=== PATIENT | female | born 1930 | race Caucasian/White ===

== ENCOUNTER 2017-11-15 07:39 | Emergency (ER) | payer MEDICARE ==
[~2017-11-15] VITALS: Ht 152.4 cm; Wt 77.6 kg
[~2017-11-15 07:39] MED LIST: ADVAIR; ALBUTEROL; ALENDRONATE SODIUM; ALEVE PO; ALIGN PO; ASPIRIN; ASPIRIN81 M2 PO; AZATHIOPRINE50 MG PO; BUSPIRONE HCL5 MG PO; CARVEDILOL; CIPROFLOXACIN; DUONEB3 ML HHN; FUROSEMIDE; GABAPENTIN; IMURAN; LEVOTHYROXINE; LOMOTIL1 EA PO; MELOXICAM; METRONIDAZOLE; METRONIDAZOLE500 MG PO; OMEPRAZOLE PO; PREDNISONE; PREDNISONE20 MG PO; PRESERVISION T1 EACH PO; PREVACID30 M2 PO; ROPINIROLE; SERTRALINE HCL50 MG PO; SPIRONOLACTONE; SYMBICORT 16010.2 GM PO; THEOPHYLLINE; THEOPHYLLINE A300 M1 PO; TRIAMCINOLONE; VESICARE; VITAMIN C; WAL ZAN; WOMEN'S VITAMIN PO; Z ALBUTEROL SULFAT PO; Z ROPINIROLE HCL PO; Z.0.ALBUTEROL SULF8. IH; Z.0.ALENDRONATE SOD7 PO; Z.0.CARVEDILOL12.5 M PO; Z.0.FUROSEMIDE40 MG PO; Z.0.GABAPENTIN100 MG PO; Z.0.LEVOTHYROXINE50 PO; Z.0.PREDNISONE10 MG PO; Z.0.SPIRONOLACTONE50 PO; Z.0.VESICARE5 MG PO; ZENPEP; ZENPEP DR 10,01 EACH PO; [UNRECOGNIZED DRUG - OTHER]; [UNRECOGNIZED DRUG - OTHER] PO; [UNRECOGNIZED DRUG - OTHER] PO
[2017-11-15] MEDS ORDERED: HYDROCODONE/APAP 5MG-325MG TAB PO ONE ×2 (08:15→11:45)
--- NOTE | 2017-11-15 10:59 | Diagnostic Imaging Report ---
PROCEDURE:X-RAY LEFT HAND, THREE OR MORE VIEWS, left wrist, 3 views COMPARISON:None. INDICATIONS:FALL FINDINGS: The bones are markedly osteopenic. No acute, displaced fracture or dislocation. Appropriate alignment between the distal radius, lunate, and capitate, is maintained on the lateral wrist radiograph. 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 Scattered degenerative changes of the carpus and hand. Soft tissues are unremarkable. CONCLUSION: Diffuse osteopenia without acute osseous abnormality of the left wrist or hand. Dictated by: Franko Moeller M.D. on 11/15/2017 at 11:08 Electronically approved by: Franko Moeller M.D. on 11/15/2017 at 11:08
--- NOTE | 2017-11-15 11:00 | Diagnostic Imaging Report ---
PROCEDURE:X-RAY LEFT WRIST, COMPLETE COMPARISON:None. INDICATIONS:FALL FINDINGS: Refer to conclusion CONCLUSION: For full detailed report refer to left hand radiographs also from 11/15/2017. Dictated by: Franko Moeller M.D. on 11/15/2017 at 11:09 Electronically approved by: Franko Moeller M.D. on 11/15/2017 at 11:09
--- NOTE | 2017-11-15 11:02 | Diagnostic Imaging Report ---
PROCEDURE:X-RAY LEFT FOREARM, TWO VIEWS, left elbow, 2 views COMPARISON:None. INDICATIONS:FALL FINDINGS: Diffuse osteopenia. No acute, displaced fracture or dislocation of the radius or ulna. Lateral radiograph of the elbow is suboptimal. Moderate joint space narrowing and subchondral sclerosis of the elbow joint. Soft tissues are unremarkable. CONCLUSION: Diffuse osteopenia without acute osseous abnormality of the left forearm or elbow. Dictated by: Franko Moeller M.D. on 11/15/2017 at 11:11 Electronically approved by: Franko Moeller M.D. on 11/15/2017 at 11:11
--- NOTE | 2017-11-15 11:03 | Diagnostic Imaging Report ---
PROCEDURE:X-RAY LEFT ELBOW, COMPLETE COMPARISON:None. INDICATIONS:FALL FINDINGS: Refer to conclusion CONCLUSION: For full report, refer to the left forearm radiographs also from 11/15/2017. Dictated by: Franko Moeller M.D. on 11/15/2017 at 11:12 Electronically approved by: Franko Moeller M.D. on 11/15/2017 at 11:12
--- NOTE | 2017-11-15 11:05 | Diagnostic Imaging Report ---
PROCEDURE:X-RAY LEFT HUMERUS, TWO OR MORE VIEWS, left shoulder 2 views COMPARISON:None. INDICATIONS:FALL FINDINGS: Acute transverse fracture of the surgical neck of the humerus with overriding by approximately 1.4 cm. The humeral head projects appropriately adjacent to the glenoid. The bones are diffusely osteopenic. Soft tissue swelling about the shoulder. CONCLUSION: Acute transverse fracture of the surgical neck of the left humerus with fragment overriding as above. Dictated by: Franko Moeller M.D. on 11/15/2017 at 11:14 Electronically approved by: Franko Moeller M.D. on 11/15/2017 at 11:14
--- NOTE | 2017-11-15 11:07 | Diagnostic Imaging Report ---
PROCEDURE:X-RAY LEFT SHOULDER, COMPLETE COMPARISON:None. INDICATIONS:FALL FINDINGS: See conclusion CONCLUSION: For full dictated report refer to left humerus radiographs also from 11/15/2017. Dictated by: Franko Moeller M.D. on 11/15/2017 at 11:15 Electronically approved by: Franko Moeller M.D. on 11/15/2017 at 11:15
--- NOTE | 2017-11-15 11:08 | Diagnostic Imaging Report ---
PROCEDURE:HIPS BILAT 3-4VWS (+/- PELVIS) INDICATION: Fall COMPARISON:None. FINDINGS: No acute, displaced fracture or dislocation. The femoral heads project appropriately over the acetabula. 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 Mild degenerative changes of the sacroiliac joints. Soft tissues are unremarkable. CONCLUSION: No displaced hip fracture. Dictated by: Franko Moeller M.D. on 11/15/2017 at 11:17 Electronically approved by: Franko Moeller M.D. on 11/15/2017 at 11:17
--- OUTSIDE RECORDS SUMMARY | 2017-11-23 11:53 | XMS REPORT ---
Author Author [facility] Address Unknown Phone Unavailable Care Team Providers Care Interior Design Principal Name Role Phone Yonny SILVER Unavailable Unavailable Problems This patient has no known problems. Allergies, Adverse Reactions, Alerts This patient has no known allergies or adverse reactions. Medications This patient has no known medications. Results Test Description Test Time Test Comments Text Results Atomic Results Result Comments HIPS BILAT 3-4VWS (+/- PELVIS) 2017-11-15 11:17:00 [place] [address] Patient Name: VIPIN OSCAR MR #: [id number] : 1930 Age/Sex: 87/F Req #: [id number] Adm Physician: Ordered by: MAO CANNON MICROCOMPUTER SUPPORT SPECIALIST Report #: [id number] Location: ER Room/Bed: Procedure: [id number] DX/HIPS BILAT 3-4VWS (+/- PELVIS) Exam Date: Exam Time: REPORT STATUS: Signed PROCEDURE: HIPS BILAT 3-4VWS (+/- PELVIS) INDICATION: Fall COMPARISON: None. FINDINGS: No acute, displaced fracture or dislocation. The femoral heads project appropriately over the acetabula. 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 Mild degenerative changes of the sacroiliac joints. Soft tissues are unremarkable. CONCLUSION: No displaced hip fracture. Dictated by: Windy Landeros M.D. on 11/15/2017 at 11:17 Electronically approved by: Windy Landeros M.D. on 11/15/2017 at 11:17 Dictated By: WINDY LANDEROS MD 16 Transcribed By: ANDREA on 11/15/171116 COPY TO: MAO CANNON NP SHOULDER LEFT COMPLETE 2017-11-15 11:15:00 [place] [address] Patient Name: VIPIN OSCAR MR #: [id number] : 1930 Age/Sex: 87/F Req #: [id number] Adm Physician: Ordered by: MAO CANNON NP Report #: [id number] Location: ER Room/Bed: Procedure: [id number] DX/SHOULDER LEFT COMPLETE Exam Date: 11/15/17 Exam Time: 1015 REPORT STATUS: Signed PROCEDURE: X-RAY LEFT SHOULDER, COMPLETE COMPARISON: None. INDICATIONS: FALL FINDINGS: See conclusion CONCLUSION: For full dictated report refer to left humerus radiographs also from 11/15/2017. Dictated by: Windy Landeros M.D. on 11/15/2017 at 11:15 Electronically approved by: Windy Landeros M.D. on 11/15/2017 at 11:15 Dictated By: WINDY LADNEROS MD 14 Transcribed By: ANDREA on 11/15/171114 COPY TO: MAO CANNON NP HUMERUS LEFT 2+VIEWS 2017-11-15 11:14:00 [place] [address] Patient Name: VIPIN OSCAR MR #: [id number] : 1930 Age/Sex: 87/F Req #: [id number] Adm Physician: Ordered by: MAO CANNON MICROCOMPUTER SUPPORT SPECIALIST Report #: [id number] Location: ER Room/Bed: Procedure: [id number] DX/HUMERUS LEFT 2+VIEWS Exam Date: 11/15/17 Exam Time: 1015 REPORT STATUS: Signed PROCEDURE: X-RAY LEFT HUMERUS, TWO OR MORE VIEWS, left shoulder 2 views COMPARISON: None. INDICATIONS: FALL FINDINGS: Acute transverse fracture of the surgical neck of the humerus with overriding by approximately 1.4 cm. The humeral head projects appropriately adjacent to the glenoid. The bones are diffusely osteopenic. Soft tissue swelling about the shoulder. CONCLUSION: Acute transverse fracture of the surgical neck of the left humerus with fragment overriding as above. Dictated by: Windy Landeros M.D. on 11/15/2017 at 11:14 Electronically approved by: Windy Landeros M.D. on 11/15/2017 at 11:14 Dictated By: WINDY LANDEROS MD 1114 Transcribed By: ANDREA on 11/15/17 1114 COPY TO: MAO CANNON NP ELBOW LEFT COMPLETE 2017-11-15 11:12:00 [place] [address] Patient Name: VIPIN OSCAR MR #: [id number] : 1930 Age/Sex: 87/F Req #: [id number] Adm Physician: Ordered by: MAO CANNON MICROCOMPUTER SUPPORT SPECIALIST Report #: [id number] Location: ER Room/Bed: Procedure: [id number] DX/ELBOW LEFT COMPLETE Exam Date: 11/15/17 Exam Time: 1015 REPORT STATUS: Signed PROCEDURE: X-RAY LEFT ELBOW, COMPLETE COMPARISON: None. INDICATIONS: FALL FINDINGS: Refer to conclusion CONCLUSION: For full report, refer to the left forearm radiographs also from 11/15/2017. Dictated by: Windy Landeros M.D. on 11/15/2017 at 11:12 Electronically approved by: Windy Landeros M.D. on 11/15/2017 at 11:12 Dictated By: WINDY LANDEROS MD 1112 Transcribed By: ANDREA on 11/15/17 1112 COPY TO: MAO CANNON MICROCOMPUTER SUPPORT SPECIALIST FOREARM LEFT 2 VIEW 2017-11-15 11:11:00 [place] [address] Patient Name: VIPIN OSCAR MR #: [id number] : 1930 Age/Sex: 87/F Req #: [id number] Adm Physician: Ordered by: MAO CANNON MICROCOMPUTER SUPPORT SPECIALIST Report #: [id number] Location: ER Room/Bed: Procedure: [id number] DX/FOREARM LEFT 2 VIEW Exam Date: 10/08/18 Exam Time: 1015 REPORT STATUS: Signed PROCEDURE: X-RAY LEFT FOREARM, TWO VIEWS, left elbow, 2 views COMPARISON: None. INDICATIONS: FALL FINDINGS: Diffuse osteopenia. No acute, displaced fracture or dislocation of the radius or ulna. Lateral radiograph of the elbow is suboptimal. Moderate joint space narrowing and subchondral sclerosis of the elbow joint. Soft tissues are unremarkable. CONCLUSION: Diffuse osteopenia without acute osseous abnormality of the left forearm or elbow. Dictated by: Windy Landeros M.D. on 11/15/2017 at 11:11 Electronically approved by: Windy Landeros M.D. on 11/15/2017 at 11:11 Dictated By: WINDY LANDEROS MD 1111 Transcribed By: ANDREA on 11/15/17 1111 COPY TO: MAO CANNON NP WRIST COMPLETE LEFT 2017-11-15 11:09:00 [place] [address] Patient Name: VIPIN OSCAR MR #: [id number] : 1930 Age/Sex: 87/F Req #: [id number] Adm Physician: Ordered by: MAO CANNON MICROCOMPUTER SUPPORT SPECIALIST Report #: [id number] Location: ER Room/Bed: Procedure: [id number] DX/WRIST COMPLETE LEFT Exam Date: 11/15/17 Exam Time: 1015 REPORT STATUS: Signed PROCEDURE: X-RAY LEFT WRIST, COMPLETE COMPARISON: None. INDICATIONS: FALL FINDINGS: Refer to conclusion CONCLUSION: For full detailed report refer to left hand radiographs also from 11/15/2017. Dictated by: Windy Landeros M.D. on 11/15/2017 at 11:09 Electronically approved by: Windy Landeros M.D. on 11/15/2017 at 11:09 Dictated By: WINDY LANDEROS MD 08 Transcribed By: ANDREA on 11/15/171108 COPY TO: MAO CANNON NP HAND 3+ VIEWS LEFT 2017-11-15 11:08:00 [place] [address] Patient Name: VIPIN OSCAR MR #: [id number] : 1930 Age/Sex: 87/F Req #: [id number] Adm Physician: Ordered by: MAO CANNON NP Report #: [id number] Location: ER Room/Bed: Procedure: [id number] DX/HAND 3+ VIEWS LEFT Exam Date: 11/15/17 Exam Time: 1015 REPORT STATUS: Signed PROCEDURE: X-RAY LEFT HAND, THREE OR MORE VIEWS, left wrist, 3 views COMPARISON: None. INDICATIONS: FALL FINDINGS: The bones are markedly osteopenic. No acute, displaced fracture or dislocation. Appropriate alignment between the distal radius, lunate, and capitate, is maintained on the lateral wrist radiograph. 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 Scattered degenerative changes of the carpus and hand. Soft tissues are unremarkable. CONCLUSION: Diffuse osteopenia without acute osseous abnormality of the left wrist or hand. Dictated by: Windy Landeros M.D. on 11/15/2017 at 11:08 Electronically approved by: Windy Landeros M.D. on 11/15/2017 at 11:08 Dictated By: WINDY LANDEROS MD 07 Transcribed By: ANDREA on 11/15/17 2810 COPY TO: MAO CANNON NP
== END 2017-11-15 12:39 | disposition home or self-care (01) ==
LOC: ER 07:47
DX: S42.212A Unspecified displaced fracture of surgical neck of left humerus, initial encounter for closed fracture (principal); W01.0XXA Fall on same level from slipping, tripping and stumbling without subsequent striking against object, initial encounter; Y92.008 Other place in unspecified non-institutional (private) residence as the place of occurrence of the external cause; J44.9 Chronic obstructive pulmonary disease, unspecified; E07.9 Disorder of thyroid, unspecified; K21.9 Gastro-esophageal reflux disease without esophagitis; F41.9 Anxiety disorder, unspecified; F32.9 Major depressive disorder, single episode, unspecified; Z87.891 Personal history of nicotine dependence
CPT/HCPCS: 73522; 99284

== ENCOUNTER 2018-07-12 13:55 | Emergency (ER) | payer MEDICARE ==
[~2018-07-12] VITALS: Ht 165.1 cm; Wt 72.6 kg
[2018-07-12] MEDS ORDERED: SODIUM CHLORIDE 0.9% 1000ML 1,000 ML IV STA (14:28)
--- NOTE | 2018-07-12 14:55 | Diagnostic Imaging Report ---
Examination: Single AP view of the chest. COMPARISON: 07/18/2010 INDICATION: Diarrhea and weakness DISCUSSION: The lungs are well-inflated and without focal airspace consolidation, pleural effusion, or pneumothorax. Stable cardiomediastinal contour with tortuosity and atherosclerotic calcification of the thoracic aorta. No overt pulmonary edema. No acute osseous abnormality. High riding right humeral head likely due to chronic rotator cuff tear. IMPRESSION: 1. No acute cardiopulmonary abnormalities. Signed by: Dr. Franko Moeller M.D. on 07/12/2018 2:52 PM
[2018-07-12 15:01] LABS: BASOPHILS % 0.3 % (0.0-1.0); EOSINOPHILS # (AUTO) 0.2 (0.0-0.4); EOSINOPHILS % 1.9 % (0.0-6.0); HEMATOCRIT 40.8 % (34.2-44.1); HEMOGLOBIN 13.2 g/dL (12.0-16.0); LYMPHOCYTES # (AUTO) 0.9 (1.0-3.2); LYMPHOCYTES % 9.7 % (18.0-39.1); MEAN CORPUSCULAR HEMOGLOBIN 30.7 pg (28-32); MEAN CORPUSCULAR HGB CONC 32.4 g/dL (31-35); MEAN CORPUSCULAR VOLUME 94.9 fL (81-99); MONOCYTES # (AUTO) 0.7 (0.2-0.8); MONOCYTES % 7.6 % (4.4-11.3); NEUTROPHILS # (AUTO) 7.1 (2.1-6.9); NEUTROPHILS % 80.2 % (38.7-80.0); PLATELET COUNT 239 x10e3/uL (140-360); RED CELL DISTRIBUTION WIDTH 13.2 % (11.7-14.4)
[2018-07-12 15:09] LABS: INR 0.86; PROTHROMBIN TIME 12.2 seconds (11.9-14.5)
[2018-07-12 15:10] LABS: PARTIAL THROMBOPLASTIN TIME 31.9 seconds (23.8-35.5)
[2018-07-12 15:18] LABS: ALANINE AMINOTRANSFERASE 15 IU/L (0-55); ALBUMIN 3.4 g/dL (3.5-5.0); ALBUMIN/GLOBULIN RATIO 1.4 (0.8-2.0); ALKALINE PHOSPHATASE 61 IU/L (40-150); BLOOD UREA NITROGEN 12 mg/dL (7-26); BUN/CREATININE RATIO 18 (6-25); CALCIUM 9.2 mg/dL (8.4-10.2); CARBON DIOXIDE 25 mmol/L (22-29); CHLORIDE 105 mmol/L (98-107); CREATINE KINASE 24 IU/L (29-168); CREATININE, SERUM 0.67 mg/dL (0.57-1.11); EST GLOMERULAR FILTRATION RATE > 60 ML/MIN (60-); GLUCOSE 61 mg/dL (74-118); LIPASE 27 U/L (8-78); SODIUM 140 mmol/L (136-145)
[2018-07-12] MEDS ORDERED: DEXTROSE 25% INJ 10 ML SYR IV NR (15:45)
[2018-07-12 16:03] LABS: BILIRUBIN,URINE NEGATIVE (NEGATIVE); CLARITY,URINE SL CLOUDY (CLEAR); COLOR,URINE YELLOW (YELLOW); KETONES,URINE 1+ (NEGATIVE); LEUKOCYTE ESTERASE ,URINE NEGATIVE (NEGATIVE); NITRITE,URINE NEGATIVE (NEGATIVE); PROTEIN,URINE DIPSTICK NEGATIVE (NEGATIVE); URINE UROBILINOGEN 0.2 mg/dL (0.2 - 1)
[2018-07-12 16:15] LABS: BACTERIA,URINE FEW /HPF
--- NOTE | 2018-07-12 18:54 | NUR ---
PATIENT AMBULATED TO BATHROOM WITH ASSIST. EXPELLED LOTS OF AIR WITH MINIMAL STOOL MIXED WITH URINE
== END 2018-07-12 19:13 | disposition home or self-care (01) ==
LOC: ER 13:55
DX: R19.7 Diarrhea, unspecified (principal); R53.1 Weakness; Z99.81 Dependence on supplemental oxygen; J44.9 Chronic obstructive pulmonary disease, unspecified; K21.9 Gastro-esophageal reflux disease without esophagitis; E03.9 Hypothyroidism, unspecified; F41.9 Anxiety disorder, unspecified; F32.9 Major depressive disorder, single episode, unspecified; Z90.49 Acquired absence of other specified parts of digestive tract
CPT/HCPCS: 36415; 71045; 80053; 81001; 82550; 82553; 82948; 83690; 83735; 84484; 85025; 85610; 85730; 87040; 87086; 93005; 99284; J7030